=== PATIENT | male | born 1955 | race Caucasian/White ===

== ENCOUNTER 2016-05-24 09:39 | Emergency (ER) | payer BC ==
[2016-05-24 12:32] VITALS: BP 129/82
== END 2016-05-24 10:26 | disposition left against medical advice (07) ==
LOC: ER 09:39
DX: Z53.21 Procedure and treatment not carried out due to patient leaving prior to being seen by health care provider (principal)

== ENCOUNTER 2016-12-13 15:53 | Emergency (ER) | payer BC ==
[2016-12-13] MEDS ORDERED: DIATRIZOATE MEGLUMINE, SODIUM 30 ML BTL ONE (16:34)
[2016-12-13] MEDS ORDERED: DIATRIZOATE MEGLUMINE, SODIUM 30 ML BTL PO ONE (16:40)
[2016-12-13 16:49] LABS: Hematocrit 43.1 % (42.0-52.0); Mean Cell Volume 86.7 fl (78-100); Mean Corpuscular Hemoglobin 30.2 pg (27-31); Mean Corpuscular Hgb Conc 34.8 g/dl (32-36); Mean Platelet Volume 10.1 fl (6.0-9.5); Neutrophil # 7.8 K/mm3 (1.3-6.0); Neutrophil % 66.1 % (42-75.0); Platelet Count 316 K/mm3 (150-450); Red Blood Count 4.97 M/mm3 (4.7-6.0); Red Cell Distribution Width 12.8 % (11.5-14.0); White Blood Count 11.8 K/mm3 (4.0-10.5)
[2016-12-13] MEDS ORDERED: diphenhydrAMINE HCL 50 MG/ML VIAL IV ONE (16:56)
[2016-12-13] MEDS ORDERED: NORMAL SALINE 1,000 ML IV ONE (16:56)
[2016-12-13] MEDS ORDERED: METOCLOPRAMIDE HCL 5 MG/ML VIAL IV ONE (16:56)
--- NOTE | 2016-12-13 16:57 | ERNOTE ---
Medical Problem HPI - General Chief Complaint: Nausea/Vomiting Time Seen by Provider: 12/13/16 16:18 Source: patient, family Exam Limitations: no limitations - Immun/Allergies/Home Medications Immunizations: IMMUNIZATION HX Immunizations Up to Date Yes History of Influenza Vaccine Yes Hx Pneumococcal Vaccination No Allergies/Adverse Reactions: Allergies No Known Allergies Allergy (Verified 12/13/16 16:25) Home Medications: HOME MEDICATIONS Aspirin 81 mg PO DAILY 12/13/16 [Last Taken Unknown] Atorvastatin Calcium 40 mg PO DAILY 12/13/16 [Last Taken Unknown] Chlorthalidone [Hygroton] 25 mg PO DAILY 12/13/16 [Last Taken Unknown] Ciprofloxacin HCl [Cipro] 500 mg PO BID #20 tab 12/13/16 [Last Taken Unknown] Colchicine 0.6 mg PO DAILY 12/13/16 [Last Taken Unknown] Desloratadine [Clarinex] 5 mg PO DAILY 12/13/16 [Last Taken Unknown] Desloratadine [Clarinex] 5 mg PO DAILY 12/13/16 [Last Taken Unknown] Indomethacin [Indocin] 50 mg PO TID 12/13/16 [Last Taken Unknown] Levocetirizine Dihydrochloride [Xyzal] 5 mg PO DAILY 12/13/16 [Last Taken Unknown] Levocetirizine Dihydrochloride [Xyzal] 5 mg PO DAILY 12/13/16 [Last Taken Unknown] Levothyroxine Sodium [Levoxyl] 225 mcg PO DAILY 12/13/16 [Last Taken Unknown] Potassium Chloride [K-Dur] 20 meq PO BID #10 tablet.sa 12/13/16 [Last Taken Unknown] Potassium Chloride [K-Dur] 20 meq PO DAILY 12/13/16 [Last Taken Unknown] Valsartan [Diovan] 160 mg PO BID 12/13/16 [Last Taken Unknown] metroNIDAZOLE [Flagyl] 500 mg PO Q12H #20 tab 12/13/16 [Last Taken Unknown] - History of Present History Narrative: Patient presents with left lower quadrant abdominal pain with diarrhea, nausea and possible blood. Onset of symptoms was 4 days ago and he was seen in a walk- in clinic and he has not been improving. Timing: getting worse Severity: moderate Review of Systems - Review of Systems Constitutional: Present: See HPI EYE: Present: no symptoms reported ENT: Present: no symptoms reported Respiratory: Present: no symptoms reported Cardiology: Present: no symptoms reported Gastrointestinal/Abdominal: Present: nausea, diarrhea, abdominal pain Genitourinary: Present: no symptoms reported Musculoskeletal: Present: no symptoms reported Skin: Present: no symptoms reported Neurological: Present: no symptoms reported Endocrine: Present: no symptoms reported Hematologic/Lymphatic: Present: no symptoms reported Psych: Present: no symptoms reported - Patient's Past Medical History Patient History - Medical: Hypothyroidism, Other Patient History - Cardiac/Respiratory: Hypertension, Hyperlipidemia Patient History - Cancer: No Hx of Cancer Patient History - Surgical Procedures: T & A Patient History - Other: None - Social History Living Situations: home Abuse History: No History of abuse Psych History: No pertinent hx Smoking Status: Never smoker Alcohol Use: occasionally Drug Use: none - Immunizations Immunizations Up to Date: Yes Hx Pneumococcal Vaccination: No History of Influenza Vaccine: Yes Physical Exam - Physical Exam General Appearance: Present: wd/wn, alert, moderate distress Head Exam: Present: normal inspection Eye Exam: Normal inspection: bilateral, PERRL: bilateral Ears, Nose, Throat: Present: normal ENT inspection, H, normal pharynx Neck: Present: normal inspection, nontender Respiratory: Present: no respiratory distress, normal breath sounds, no accessory muscle use, chest nontender, lungs clear Cardiovascular/Chest: Present: regular rate, rhythm, no murmur, normal peripheral pulses Gastrointestinal/Abdominal: Present: normal bowel sounds, nondistended, tenderness, guarding - mild guarding in the left lower quadrant Rectal Exam: Present: deferred Back Exam: Present: normal inspection, normal range of motion Extremity Exam: Present: normal inspection, non-tender, no edema, normal range of motion Neurological Exam: Present: alert, oriented, normal mood/affect Skin Exam: Present: normal color, warm/dry Lymphatic Exam: Present: no adenopathy ED Progress - Results and Orders Patient's Lab Results:: I have reviewed the patient's lab results. - Vital Signs Patient's Vital Signs:: I have reviewed the patient's vital signs. Vital Signs: Vital Signs 12/13/16 16:01 Temperature 36.4 C L Pulse Rate 92 Respiratory 16 Rate Blood Pressure 124/64 O2 Sat by Pulse 97 Oximetry - CT/Ultrasound CT/Ultrasound Narrative: CT of the abdomen and pelvis was reviewed by me - Progress/Reassessment Chief Complaint: Nausea/Vomiting Progress:: Improved Plan - Plan Plan: The patient appears to have some form of colitis evidenced by the CT of the abdomen and pelvis. It is unclear whether this could be either an inflammatory bowel possible invasive Escherichia coli. Stool cultures have been sent to the lab and they're pending. Patient was given 1 L of normal saline in the ER and he felt better, and I suspect hypovolemia is likely the source for the mildly elevated lactate. Patient was given 40 mEq of potassium orally in the department and he will be given a prescription for potassium at home. We will start him prophylactically on Cipro and Flagyl orally and he will take one capful of Pepto-Bismol with every diarrheal stool. Patient states he feels good enough to go home, however he was given the caveat to call Dr. Cross this coming week to arrange for a possible colonoscopy as both he and the state that he is due for one. Departure - Departure Clinical Impression: Colitis Disposition: Home self-care Condition: Good Instructions: Colitis Additional Instructions: Call Dr. Cross this week to arrange for further outpatient testing. Take 30 ml of Pepto-bismol with every diarrhea stool Referrals: Sindy Cross MD [Primary Care Provider] - Prescriptions: Ciprofloxacin HCl [Cipro] 500 mg PO BID #20 tab metroNIDAZOLE [Flagyl] 500 mg PO Q12H #20 tab Potassium Chloride [K-Dur] 20 meq PO BID #10 tablet.sa
[2016-12-13] MEDS ORDERED: diphenhydrAMINE HCL 50 MG/ML VIAL ONE (16:58)
[2016-12-13] MEDS ORDERED: METOCLOPRAMIDE HCL 5 MG/ML VIAL ONE (16:58)
[2016-12-13 17:02] LABS: Albumin * 3.2 gm/dl (3.4-5.0); Anion Gap 18.2 mmol/L (6.8-13.8); BUN/Creatinine Ratio 20.2 (9.0-21.6); Bilirubin, Total 0.5 mg/dL (0.0-1.1); Calcium * 8.7 mg/dL (7.9-10.9); Carbon Dioxide 23.6 mmol/L (24-32.6); Magnesium 1.8 mg/dL (1.2-2.8); Potassium 2.8 mmol/L (3.4-4.6); Total Protein 7.2 gm/dL (6.2-8.2)
[2016-12-13 17:15] LABS: Urine Appearance Slightly Cloudy; Urine Bacteria None Seen; Urine Bilirubin Negative (NEGATIVE); Urine Blood Negative /ul (NEGATIVE); Urine Color Yellow; Urine Ketone Negative (NEGATIVE); Urine Nitrite Negative (NEGATIVE); Urine Protein Negative (NEGATIVE); Urine RBC None Seen /hpf (0-5); Urine Urobilinogen Normal (NORMAL); Urine WBC 0-5 /hpf (0-5); Urine pH 5.5 pH (5.0-7.0)
[2016-12-13] MEDS ORDERED: POTASSIUM CHLORIDE 20 MEQ TABLET.SA PO ONE (18:53)
[2016-12-13] MEDS ORDERED: POTASSIUM CHLORIDE 20 MEQ TABLET.SA ONE (18:59)
[2016-12-13] MEDS ORDERED: metroNIDAZOLE 500 MG TABLET PO ONE (19:02)
[2016-12-13] MEDS ORDERED: CIPROFLOXACIN HCL 250 MG TABLET PO ONE (19:02)
[2016-12-13] MEDS ORDERED: CIPROFLOXACIN HCL 250 MG TABLET ONE (19:07)
[2016-12-13] MEDS ORDERED: metroNIDAZOLE 500 MG TABLET ONE (19:07)
[2016-12-13] MEDS ORDERED: BISMUTH SUBSALICYLATE 237 ML BTL ONE (19:27)
[2016-12-13] MEDS ORDERED: BISMUTH SUBSALICYLATE 237 ML BTL PO SCH (19:45)
[2016-12-13 20:15] VITALS: BP 105/59
== END 2016-12-13 19:54 | disposition home or self-care (01) ==
LOC: ER 15:53
DX: K52.9 Noninfective gastroenteritis and colitis, unspecified (principal); I10 Essential (primary) hypertension; E03.9 Hypothyroidism, unspecified; E78.5 Hyperlipidemia, unspecified

== ENCOUNTER 2017-02-21 09:35 | Emergency (ER) | payer BC ==
[2017-02-21 09:46] VITALS: BP 142/87
--- NOTE | 2017-02-21 10:18 | ERNOTE ---
Date of Service: 02/21/17 Time Seen by Provider: 02/21/17 09:51 Stated Complaint: sinus infection Source: patient Exam Limitations: no limitations Immunizations: IMMUNIZATION HX Immunizations Up to Date Yes History of Influenza Vaccine Yes Hx Pneumococcal Vaccination No Allergies/Adverse Reactions: Allergies No Known Allergies Allergy (Verified 02/21/17 09:46) Home Medications: HOME MEDICATIONS Atorvastatin Calcium 40 mg PO DAILY 12/13/16 [Last Taken Unknown] Levocetirizine Dihydrochloride [Xyzal] 5 mg PO DAILY 12/13/16 [Last Taken Unknown] Levothyroxine Sodium [Levoxyl] 200 mcg PO DAILY 12/13/16 [Last Taken Unknown] Valsartan [Diovan] 160 mg PO BID 12/13/16 [Last Taken Unknown] Amox Tr/Potassium Clavulanate [Augmentin 875-125 Tablet] 875 mg PO Q12H #20 tab 02/21/17 [Last Taken Unknown] metFORMIN HCL [Glucophage] 500 mg PO DAILY 02/21/17 [Last Taken Unknown] - History of Present Ilness Narrative: Patient presents with sinus infection. He has had over two weeks of sinus infection. He had been on bactrim. He is now through that but has surgery Wednesday and wants something further for this. No CP or SOB. No fever. No headache. No other Sx with that. Nothing makes this better or worse. He basically is requesting antibiotic d/t his upcoming surgery on his hip. Timing: constant Severity: moderate Frequency/Possible Cause: Reports: occasional episodes Modifying Factors - Improves: Reports: nothing Modifying Factors - Worsens: Reports: nothing Associated Symptoms: Reports: nasal congestion. Denies: chest pain/soreness, cough, shortness of breath, headache, sore throat Prior Treatment: Denies: currently on antibiotics Review of Systems - Review of Systems Constitutional: Absent: fever EYE: Present: no symptoms reported ENT: Present: nose congestion Respiratory: Absent: shortness of breath Cardiology: Absent: chest pain - Patient's Past Medical History Patient History - Medical: Hypothyroidism, Other Patient History - Cardiac/Respiratory: Hypertension, Hyperlipidemia Patient History - Cancer: No Hx of Cancer Patient History - Surgical Procedures: T & A Patient History - Other: None - Social History Living Situations: home Abuse History: No History of abuse Psych History: No pertinent hx Smoking Status: Never smoker Alcohol Use: occasionally Drug Use: none - Immunizations Immunizations Up to Date: Yes Hx Pneumococcal Vaccination: No History of Influenza Vaccine: Yes Physical Exam - Physical Exam General Appearance: Present: alert, no apparent distress Head Exam: Present: normal inspection, no evidence of injury Eye Exam: Normal inspection: bilateral, PERRL: bilateral Ears, Nose, Throat: Present: nasal congestion, normal pharynx, other - Sinusitis noted.. Absent: dry mucous membranes Neck: Present: normal inspection, supple Respiratory: Present: no respiratory distress, normal breath sounds, no accessory muscle use, lungs clear Cardiovascular/Chest: Present: regular rate, rhythm Gastrointestinal/Abdominal: Present: normal bowel sounds, nontender, soft Back Exam: Present: normal range of motion Extremity Exam: Present: normal range of motion Neurological Exam: Present: alert, normal mood/affect, no motor/sensory deficits Skin Exam: Present: normal color, warm/dry ED Progress - Vital Signs Patient's Vital Signs:: I have reviewed the patient's vital signs. Vital Signs: Vital Signs 02/21/17 09:43 Temperature 36.5 C Pulse Rate 73 Respiratory 16 Rate Blood Pressure 142/87 O2 Sat by Pulse 100 Oximetry - Progress/Reassessment Chief Complaint: Upper Respiratory Symptoms Progress Note-Subjective: 02/21/17 10:17 Given prolonged duration will place on ABx. He is stable, non-toxic, no distress. I discussed warning signs and reasons to return as well as the need for close f/u. Departure Clinical Impression: Sinusitis - Departure Disposition: Home self-care Condition: Stable Instructions: Sinusitis, Adult, [id number] Additional Instructions: Rest. Fluids. Antibiotic as directed. Follow-up with your doctor this week as scheduled. Return for fever, trouble breathing or if your condition worsens or changes in any way, Referrals: Sindy Cross MD [Primary Care Provider] - Prescriptions: Amox Tr/Potassium Clavulanate [Augmentin 875-125 Tablet] 875 mg PO Q12H #20 tab
== END 2017-02-21 10:16 | disposition home or self-care (01) ==
LOC: ER 09:35
DX: J01.90 Acute sinusitis, unspecified (principal); E03.9 Hypothyroidism, unspecified; I10 Essential (primary) hypertension; E78.5 Hyperlipidemia, unspecified